=== PATIENT | male | born 1995 | race Caucasian/White ===

== ENCOUNTER 2016-10-18 14:18 | Emergency (ER) | payer SELFPAY ==
[~2016-10-18 14:18] MED LIST: Sodium Chloride Irrig Solution 250 ML BOT ONE; Sterile Water Irrigation 1,000 ML BOT ONE
--- NOTE | 2016-10-18 14:55 | RAD ---
THREE VIEWS LEFT HAND: COMPARISON: None. HISTORY: Left hand injury with pain. FINDINGS: Three views left hand show no evidence of acute fracture or dislocation. Mild dorsal soft tissue sw elling is seen. No degenerative changes are present. IMPRESSION: No significant left hand abnormality. POS: [facility]
[2016-10-18] MEDS ORDERED: Cephalexin 500 MG CAP ONE (15:29)
[2016-10-18] MEDS ORDERED: Bacitracin Zinc 1 Packet ONE (15:32)
--- NOTE | 2016-10-18 15:37 | PICIS ---
[facility] EMERGENCY RECORD TRIAGE (14:30 SFRE) TRIAGE NOTES: INJURY TO RIGHT HAND. (14:30 SFRE) PATIENT: NAME: Rosa Parmar Jr, AGE: 20, GENDER: male, : Mon 1995, TIME OF GREET: FriOct 18, 2016 14:19, PREFERRED LANGUAGE: Lithuanian, ETHNICITY: Not or , ECODE BILLING MAP: [facility], Zip Code: [address], KG WEIGHT: 61.69, PHONE: CELL, , , PERSON ID: [id number], PCP: NO PCP. (14:30 SFRE) COMPLAINT: INJURY TO RIGHT HAND. (14:30 SFRE) ADMISSION: URGENCY: 3 Urgent, ADMISSION SOURCE: Home, TRANSPORT: Walk-in, BED: ED -03. (14:30 SFRE) PAIN: Patient complains of pain described as. (14:31 SFRE) PROVIDERS: TRIAGE NURSE: Farrah Bui RN. (14:30 SFRE) VITAL SIGNS: BP 128/76, Pulse 76, Resp 18, Temp 98.6, (Oral), Pain 8, (Constant), O2 Sat 99, on Room Air, Time 10/18/2016 14:29. (14:29 SFRE) PREVIOUS VISIT ALLERGIES: No Known Allergies. (14:30 SFRE) No Known Allergies. (14:31 SFRE) KNOWN ALLERGIES No Known Allergies CURRENT MEDICATIONS (14:30 SFRE) None VITAL SIGNS (14:29 SFRE) VITAL SIGNS: BP: 128/76, Pulse: 76, Resp: 18, Temp: 98.6 (Oral), Pain: 8 (Constant), O2 sat: 99 on Room Air, Time: 10/18/2016 14:29. NURSING ASSESSMENT: SKIN TRAUMA (14:51 SFRE) CONSTITUTIONAL: Patient arrives ambulatory, Gait steady, History obtained from patient, Patient appears comfortable, Patient cooperative, Patient alert, Oriented to person, place and time, Skin warm, Skin dry, Skin normal in color, Mucous membranes pink, Mucous membranes moist, Patient is well-groomed, Patient complains of PAIN TO RIGHT HAND. MECHANISM OF INJURY: Mechanism of injury cut or punctured by, occurred at home, GLASS. PAIN: sharp pain, Onset of pain 10/17/2016, on a scale 0-10 patient rates pain as 8, Pain exacerbated by nothing, Nothing has been tried to alleviate the pain. SKIN: Skin assessment findings include skin warm, Skin dry, Skin normal in color, Inspection findings include abrasion, to RIGHT HAND, Inspection findings include signs of trauma, to RIGHT HAND, Inspection findings include swelling, to RIGHT HAND. SAFETY: Side rails up, Cart/Stretcher in lowest position, Family at bedside, Call light within reach, Hospital ID band on. &a-1R&a+25V*p+0X*s2512D*c202B*c15G*c2P*p-0X&a-25V&a+1R Name: Rosa Parmar Jr : 1995 M20 MedRec: [id number] AcctNum: [id number] Prepared: FriOct 18, 2016 15:48 by Interface Page 1 of 6 pMD [facility] EMERGENCY RECORD NURSING PROCEDURE: DISCHARGE NOTE (15:42 SFRE) DISCHARGE: Patient discharged to home, ambulating without assistance, family driving, accompanied by parent, Summary of Care printed/ provided, Patient requested and was provided an electronic copy of Discharge Instructions, Discharge instructions given to patient, Simple or moderate discharge teaching performed, by FRED PALACIOS, F/U WITH PCP. RX DIRECTED. RETURN TO ED NEEDED FOR NEW/CONCERNING OR WORSENING SYMPTOMS., Prescriptions given and instructions on side effects given, Name of prescription(s) given: T3, KEFLEX, Above person(s) verbalized understanding of discharge instructions and follow-up care. SAFETY: Side rails up, Cart/Stretcher in lowest position, Family at bedside, Call light within reach, Hospital ID band on. NURSING PROCEDURE: WOUND CARE WOUND CARE: Wound care indicated for preparing wound for repair, Wound care indicated to promote healing, Wound site: RIGTH HAND, Cause of wound: CUT ON GLASS, Wound irrigated with 2000 mL of normal saline, Wound cleansed with Betadine, Notes: HAND SOAKED AND CLEANED WITH SURGICAL BRUSH. (15:00 SFRE) FOLLOW-UP: After procedure, simple dressing applied, using 4x4 dressing, using adaptic dressing, wrapped with 2 inch coban. (15:42 SFRE) ORDER DETAILS Order Name: XR Hand Lt 3 View STANDARD, Status: Active, Time: 14:35 10/18/2016, User: ADELITA, - Ordered for: MD Adrian Anthony, - Entered by: FRED Bui Stacey - FriOct 18, 2016 14:35, - Quantity: 1. MEDICATION ADMINISTRATION SUMMARY Drug Name: bacitracin topical, Dose Ordered: 1 cade, Route: Topical, Status: Given, Time: 15:43 10/18/2016, Drug Name: Keflex, Dose Ordered: 500 mg, Route: Oral, Status: Given, Time: 15:31 10/18/2016, Detailed record available in Medication Service section. MEDICATION SERVICE bacitracin topical: Order: bacitracin topical (bacitracin) - Dose: 1 cade : Topical Schedule: Now Ordered by: Konrad Adrian MD Entered by: Konrad Adrian MD FriOct 18, 2016 15:32 Documented as given by: Farrah Bui RN FriOct 18, 2016 15:43 Patient, Medication, Dose, Route and Time verified prior to administration. Amount given: 1 CADE, Skin cleansed prior to administration, Shaving &a-1R&a+25V*p+0X*s9140E*c202B*c15G*c2P*p-0X&a-25V&a+1R Name: Rosa Parmar Jr : 1995 M20 MedRec: [id number] AcctNum: [id number] Prepared: FriOct 18, 2016 15:48 by Interface Page 2 of 6 pMD [facility] EMERGENCY RECORD required prior to administration, Correct patient, time, route, dose and medication confirmed prior to administration, Patient advised of actions and side-effects prior to administration, Allergies confirmed and medications reviewed prior to administration. Keflex: Order: Keflex (cephalexin monohydrate) - Dose: 500 mg : Oral Schedule: Now Ordered by: Konrad Adrian MD Entered by: Konrad Adrian MD FriOct 18, 2016 15:27 , Acknowledged by: Farrah Bui RN FriOct 18, 2016 15:29 Documented as given by: Farrah Bui RN FriOct 18, 2016 15:31 Patient, Medication, Dose, Route and Time verified prior to administration. Amount given: 500MG, Site: Medication administered P.O., Correct patient, time, route, dose and medication confirmed prior to administration, Patient advised of actions and side-effects prior to administration, Allergies confirmed and medications reviewed prior to administration, Patient in position of comfort, Side rails up, Cart in lowest position, Family at bedside. HPI HAND (15:32 ABUS) CHIEF COMPLAINT: Patient presents for evaluation of injury, to the right hand, Patient presents for evaluation of swelling, to the right hand. HISTORIAN: History provided by patient, 20 yr old M with no PMH who come in with reports of injury (hitting the back of his right hand on a vase and breaking it yesterday. No fever, but has some mild swelling and open wound that he did not seek treatment for. Has normal sensation and motor movement. MECHANISM OF INJURY: Mechanism of injury: Blunt trauma, by direct blow. LOCATION: Symptoms are localized, most severe in the dorsal surface of hand. QUALITY: Pain is dull in nature, described as aching. SEVERITY: Currently symptoms are moderate, Current severity of pain rated as 8/10. TIME COURSE: Gradual onset of symptoms, 1, days priror to arrival, Symptoms are worsening, are constant. ASSOCIATED WITH: No associated symptoms. EXACERBATED BY: Patient's condition exacerbated by nothing. RELIEVED BY: Patient's condition relieved by nothing. ROS (15:35 ABUS) CONSTITUTIONAL: Negative constitutional review of systems, Historian denies chills, denies fever. ENT: Negative ears, nose, throat review of systems, Historian denies rhinorrhea, denies sore throat. CARDIOVASCULAR: Negative cardiovascular review of systems, Historian denies chest pain, denies palpitations. RESPIRATORY: Negative respiratory review of systems, Historian &a-1R&a+25V*p+0X*q3843A*c202B*c15G*c2P*p-0X&a-25V&a+1R Name: Rosa Parmar Jr : 1995 M20 MedRec: [id number] AcctNum: [id number] Prepared: FriOct 18, 2016 15:48 by Interface Page 3 of 6 pMD [facility] EMERGENCY RECORD denies cough, denies shortness of breath. GI: Negative gastrointestinal review of systems, Historian denies abdominal pain, denies constipation, denies diarrhea, denies nausea, denies vomiting. MUSCULOSKELETAL: Negative musculoskeletal review of systems, Historian denies back pain, denies fall, denies injury, denies neck pain. SKIN: Historian reports skin lesions. NEUROLOGIC: Negative neurologic review of systems, Historian denies headache. PAST MEDICAL HISTORY (14:31 SFRE) MEDICAL HISTORY: No past medical history, Tetanus immunization up to date. MALE SURGICAL HISTORY: Patient has no surgical history. PSYCHIATRIC HISTORY: No previous psychiatric history. SOCIAL HISTORY: Patient drinks socially, every week, Patient denies drug use, Patient currently uses tobacco, smokes cigarettes, Patient smokes 1 pack per day. PHYSICAL EXAM (15:35 ABUS) CONSTITUTIONAL: Vital signs reviewed, Patient afebrile, Pulse normal, Blood pressure normal, Respiratory rate normal, Patient appears non toxic, Patient appears pain free, Patient alert and oriented to person, place and time. NECK: Neck exam normal, Neck exam included findings of normal range of motion, Trachea midline, no meningeal signs, no cervical adenopathy, no tenderness. RESPIRATORY CHEST: Respiratory and chest exam normal, Respiratory exam included findings of no respiratory distress, Breath sounds clear. CARDIOVASCULAR: Cardiovascular assessment normal, Cardiovascular exam included findings of heart rate regular rate and rhythm, Heart sounds normal. ABDOMEN MALE: Abdominal exam included findings of abdomen nontender, Bowel sounds normal, no distension, no mass, no pulsatile masses, no peritoneal signs, no rigidity, no guarding, no rebound, Rovsing's sign absent. BACK: Back exam normal, Back exam included findings of normal inspection, range of motion normal, no tenderness. NEURO: Neuro exam normal, Neuro exam findings include patient oriented to person, place and time, Speech normal, Gait normal. SKIN: Skin exam included findings of skin warm, dry, and normal in color, no rash, dorsal hand open wound of about 2 cm draining clear fluid and meild redness and swelling. No FB. No tendon, nerve or blood vessel exposure. EVENTS TRANSFER: Triage to Emergency Main ED -03. (FriOct 18, 2016 14:30 SFRE) &a-1R&a+25V*p+0X*d1857R*c202B*c15G*c2P*p-0X&a-25V&a+1R Name: Rosa Parmar Jr : 1995 M20 MedRec: [id number] AcctNum: [id number] Prepared: FriOct 18, 2016 15:48 by Interface Page 4 of 6 pMD [facility] EMERGENCY RECORD Removed from Emergency Main ED -03. (15:44 SFRE) DOCTOR NOTES (15:37 ABUS) TEXT: 20 yr old M with no PMH who come in with reports of injury (hitting the back of his right hand on a vase and breaking it yesterday Exam: dorsal hand open wound of about 2 cm draining clear fluid and mild redness and swelling. No FB. No tendon, nerve or blood vessel exposure. Dx: Cellulitis, laceration (no repaired due to being > 12 hrs old and looking infected. Plan: Bedside cleaning with hebicleans brush and abx, strict counseling on wound care and return precautions and to come back by Friday or sooner if it worsens and to call orthopedic doctor in [place] on Friday if not better. The patient verbalized understanding and agreement. PROBLEM LIST No recorded problems DIAGNOSIS (15:29 ABUS) FINAL: PRIMARY: Cellulitis, ADDITIONAL: Hand injury. DISPOSITION PATIENT: Disposition Type: Discharge, Disposition: *Discharge Home, Condition: Good. (15:29 ABUS) Patient left the department. (15:44 SFRE) INSTRUCTION (15:30 ABUS) DISCHARGE: CELLULITIS, LACERATION, HAND. FOLLOWUP: [facility], /[facility], [address] [place] [address], , Follow up with Primary Care Physician in 2-3 days. SPECIAL: As discussed in the ER before you left, please follow up with your primary care doctor or call the referral made for you here in the ED today to establish outpatient follow up for your medical care. Please come back sooner if you start to develop fever, worsening pain, swelling, or symptoms that are new or symptoms the concern you. PRESCRIPTION (15:29 ABUS) acetaminophen-codeine: TABLET : 300 mg-30 mg : ORAL : Quantity: 1 Unit: tab(s) Route: ORAL Schedule: every 6 hours PRN Dispense: 6 Unit: tab(s) May substitute. Refills: No Refills . NOTES: No Refills. Keflex: CAPSULE : 500 mg : ORAL : Quantity: 1 Unit: cap(s) Route: ORAL Schedule: 4 times a day Dispense: 28 Unit: cap(s) &a-1R&a+25V*p+0X*k3754B*c202B*c15G*c2P*p-0X&a-25V&a+1R Name: Rosa Parmar Jr : 1995 1 MedRec: [id number] AcctNum: [id number] Prepared: FriOct 18, 2016 15:48 by Interface Page 5 of 6 pMD [facility] EMERGENCY RECORD May substitute. Refills: No Refills . NOTES: ^s=No Refills No Refills. IMAGING (15:43 SFRE) *DISCHARGE INSTRUCTIONS RECEIPT: Image captured from scanner. Page 2 added. Image captured from scanner. ADMIN DIGITAL SIGNATURE: MD Adrian Anthony. (15:30 ABUS) MD Adrian Anthony. (15:40 ABUS) [place]: ABUS=MD Adrian Anthony SFRE=FRED Bui, Farrah &a-1R&a+25V*p+0X*a1536G*c202B*c15G*c2P*p-0X&a-25V&a+1R Name: Rosa Parmar Jr : 1995 M20 MedRec: [id number] AcctNum: [id number] Prepared: FriOct 18, 2016 15:48 by Interface Page 6 of 6 pMD [facility]
== END 2016-10-18 15:40 | disposition home or self-care (01) ==
LOC: MADERS 14:18
DX: S61.401A Unspecified open wound of right hand, initial encounter (principal); L03.113 Cellulitis of right upper limb; F17.210 Nicotine dependence, cigarettes, uncomplicated; W45.8XXA Other foreign body or object entering through skin, initial encounter
CPT/HCPCS: 99283; A4217

== ENCOUNTER 2017-12-13 14:34 | Emergency (ER) | payer OTHER, SELFPAY ==
[2017-12-13] MEDS ORDERED: Naproxen 500 MG TAB ONE (15:47)
[2017-12-13] MEDS ORDERED: HYDROcodone/Acetaminophen 10/325 mg Tablet ONE (15:47)
--- NOTE | 2017-12-13 16:50 | RAD ---
RIGHT FOOT THREE VIEW 12/13/17 HISTORY: Trauma. COMPARISON: None. FINDINGS: No acute displaced fracture or malalignment. Lisfranc interval appears to be maintained. IMPRESSION: No acute fracture or malalignment. POS: [facility]
== END 2017-12-13 16:06 | disposition home or self-care (01) ==
LOC: MADERS 14:34
DX: S93.601A Unspecified sprain of right foot, initial encounter (principal); F17.210 Nicotine dependence, cigarettes, uncomplicated; W19.XXXA Unspecified fall, initial encounter

== ENCOUNTER 2019-05-12 08:00 | Emergency (ER) | payer OTHER, SELFPAY ==
[2019-05-12] MEDS ORDERED: predniSONE 20 MG TAB ONE (08:42)
== END 2019-05-12 09:00 | disposition home or self-care (01) ==
LOC: MADERS 08:00
DX: S60.561A Insect bite (nonvenomous) of right hand, initial encounter (principal); F17.210 Nicotine dependence, cigarettes, uncomplicated; Z71.6 Tobacco abuse counseling; W57.XXXA Bitten or stung by nonvenomous insect and other nonvenomous arthropods, initial encounter
CPT/HCPCS: 99406; J7512

== ENCOUNTER 2019-12-30 13:49 | Emergency (ER) | payer SELFPAY ==
[2019-12-30] MEDS ORDERED: Sulfameth/Trimethoprim DS 800-160mg TAB ONE (14:39)
== END 2019-12-30 14:45 | disposition home or self-care (01) ==
LOC: MADERS 13:49
DX: L03.012 Cellulitis of left finger (principal); F17.210 Nicotine dependence, cigarettes, uncomplicated
CPT/HCPCS: 99283

== ENCOUNTER 2021-04-10 11:16 | Emergency (ER) | payer SELFPAY ==
[2021-04-10] MEDS ORDERED: Ondansetron PF 4 MG/2 ML Vial ONE (11:55)
[2021-04-10] MEDS ORDERED: Morphine 4 MG/ML VIAL ONE (11:55)
[2021-04-10 12:09] LABS: #Basophils 0.1 thou/uL (0.0-0.2); #Eosinphils 0.2 thou/uL (0.0-0.7); #Lymphocytes 2.2 thou/uL (1.20-3.40); #Monocytes 0.5 thou/uL (0.11-0.59); %Basophils 1.5 % (0.0-1.0); %Lymphocytes 36.8 % (21.0-51.0); %Monocytes 7.8 % (0.0-10.0); %Neutrophils 49.9 % (42.0-75.0); Mean Corpuscular HGB CONC 32.1 g/dL (32.0-36.0); Mean Corpuscular Hemoglobin 29.5 pg (27.0-31.0); Mean Platelet Volume 7.9 fL (7.4-10.4); Platelet Count 260 thou/uL (130-400)
[2021-04-10 12:24] LABS: ALT (SGPT) 34 U/L (8-55); AST (SGOT) 26 U/L (5-34); Albumin 4.8 g/dL (3.5-5.0); Alkaline Phosphatase 125 U/L (40-110); Anion Gap 14 mmol/L (10-20); BUN (Urea Nitrogen) 13 mg/dL (8.9-20.6); Bilirubin, Total 0.6 mg/dL (0.2-1.2); Calc. Creatinine Clearance 0 mL/min (70-130); Carbon Dioxide 27 mmol/L (22-29); Chloride 105 mmol/L (98-107); Globulin 2.7 g/dL (2.4-3.5); Glucose 100 mg/dL (70-105); Lipase 18 U/L (8-78); Potassium 3.9 mmol/L (3.5-5.1); Protein, Total 7.5 g/dL (6.0-8.3); Sodium 142 mmol/L (136-145)
[2021-04-10] MEDS ORDERED: Ketorolac Tromethamine 30 MG/ML VIAL ONE (13:41)
[2021-04-10 15:19] LABS: Bilirubin Negative (Negative); Blood, Urine Large (Negative); Clarity Cloudy (Clear); Glucose, Urine (Dipstick) Negative (Negative); Ketone, Urine Negative (Negative); Leukocyte Negative (Negative); Nitrite Negative (Negative); Protein, Urine (Dipstick) 100 mg/dL (Neg-Trace); Urobilinogen 0.2 mg/dL (Less than 2)
[2021-04-10 15:26] LABS: Specific Gravity, Urine 1.026 (1.002-1.036)
[2021-04-10 15:27] LABS: Bacteria/HPF 2+ HPF (None Seen); RBC/HPF 21-50 HPF (0-3)
[2021-04-10] MEDS ORDERED: cefTRIAXone\\ROCEPHIN 1 GM VIAL ONE (15:58)
[2021-04-10] MEDS ORDERED: Sodium Chloride 0.9% 100 ML ONE ×2 (15:58→16:05)
[2021-04-10] MEDS ORDERED: cefTRIAXone\\ROCEPHIN 500 MG VIAL ONE (16:05)
== END 2021-04-10 16:27 | disposition home or self-care (01) ==
LOC: MADERS 11:16
DX: N13.2 Hydronephrosis with renal and ureteral calculous obstruction (principal); F17.210 Nicotine dependence, cigarettes, uncomplicated
CPT/HCPCS: 74176; 80053; 81003; 81015; 83605; 83690; 85025; 96374; 96375; J0696; J1885; J2270; J2405; J3490